=== PATIENT | female | born 1990 | race Caucasian/White ===

== ENCOUNTER 2018-02-23 17:52 | Inpatient (IN) | payer MEDICAID, SELFPAY ==
[2018-02-23 18:12] VITALS: BMI 31.2
[2018-02-23] MEDS: Lactated Ringers 1,000 ML 50 ML IV ×3 (18:25→22:13)
[2018-02-23 18:56] LABS: Hematocrit 33.9 % (37-47); Hemoglobin 11.4 g/dl (12.0-15.0); Mean Corp Hgb Conc 33.6 g/gl (32-36); Mean Corpuscular Hgb 32.7 pg (27.0-32.0); Mean Corpuscular Volume 97.1 fL (81-99); Mean Platelet Vol. 10.6 fl (6.2-12.0); Platelet Count 238 K/mm3 (150-450); RBC Distribution Width SD 45.6 fl (35.1-43.9); Red Blood Count 3.49 M/mm3 (4.2-5.4); White Blood Count 12.4 K/mm3 (4.4-11.0)
[2018-02-23 19:01] LABS: Scan Indicated on CBC? Y/N NO
[2018-02-23] MEDS: fentaNYL-bupivacaine (epidural) 100 ML BAG EPIDURAL (19:45)
[2018-02-23] MEDS: Ondansetron 4 MG/2 ML Vial IV (20:20)
--- NOTE | 2018-02-23 21:53 | PCM.HP.OB ---
History Date of Admission: 02/23/18 Final MARVIN: 03/03/18 Gestational age: 38 Weeks and 6 Days History of this : GBS negative PNC in [place] with Pertinent Past Medical History: Hepatitis C Legally blind PTSD Anxiety & depression - no meds in Allergies ketorolac [From Toradol] Adverse Reaction (Verified 09/30/16 02:10) Other Penicillins Adverse Reaction (Verified 09/30/16 01:06) Hives Current Medications Acetaminophen (Tylenol) 325 - 650 mg PO Q4H PRN PRN PRN Reason: PAIN OR FEVER >100.4F Al Hydroxide/Mg Hydroxide (Mylanta Ii) 15 - 30 ml PO Q4H PRN PRN PRN Reason: INDIGESTION Citric Acid/Sodium Citrate (Bicitra) 30 ml PO UD PRN Lactated Ringer's () 1,000 mls @ 50 mls/hr IV .Q20H EDGAR Last Admin: 02/23/18 20:21 Dose: 50 mls/hr Naloxone HCl 4 mg/ Dextrose 504 mls @ 0 mls/hr IV PRN PRN; Protocol PRN Reason: TO MAINTAIN RR>10 Nalbuphine HCl (Nubain) 5 - 10 mg IV Q3H PRN PRN PRN Reason: PAIN (4-10/10) Nalbuphine HCl (Nubain) 5 mg IV Q3H PRN PRN Reason: ITCHING Stop: 02/24/18 20:51 Naloxone HCl (Narcan) 0.2 mg IV Q1M PRN PRN Reason: RR<10 AND PT UNRESPONSIVE Stop: 02/24/18 20:51 Ondansetron HCl (Zofran) 4 mg IV Q8H PRN PRN PRN Reason: NAUSEA Last Admin: 02/23/18 20:20 Dose: 4 mg Promethazine HCl (Phenergan Iv) 6.25 - 12.5 mg IV Q4H PRN PRN; Protocol PRN Reason: IF NAUSEA PERSISTS Sodium Chloride () 5 - 15 ml IV UD EDGAR Last Admin: 02/23/18 19:54 Dose: Not Given Smoking Status: Current every day smoker Alcohol: None Drug Use: none Number of Fetus(es): 1 Physical Exam General: Alert, Oriented x3 Abdomen: Soft, Non Tender, Non-Distended, Gravid Estimated gestational size: Appropriate for gestational size Cervix Dilation (cm): 8 - AROM meconium fluid Station: 0 Effacement (%): 90 Assessment/Plan 27yo female @ 38&6 in labor Admit to L&D Pain - comfortable with epidural GBS negative EFW less than 4500g, patient with adequate pelvis Peds at delivery for meconium fluid Routine care
[2018-02-23 21:59] LABS: AST(SGOT) 21 U/L (15-37); Alanine Aminotransfer ALT/SGPT 21 U/L (13-56); Albumin, Serum 2.3 g/dL (3.2-5.0); Alkaline Phosphatase 104 U/L (45-117); Bilirubin, Direct 0.14 mg/dL (0.00-0.30); Globulin 3.9 g/dL (2.2-4.2); Protein, Total 6.2 g/dL (6.4-8.2)
[2018-02-24] MEDS: fentaNYL-bupivacaine (epidural) 100 ML BAG EPIDURAL ×2 (00:25→05:25)
[2018-02-24] MEDS: Lactated Ringers 1,000 ML 50 ML IV ×2 (02:06→07:18)
[2018-02-24] MEDS: Acetaminophen 325 MG Tablet PO (03:10)
[2018-02-24] MEDS: Ondansetron 4 MG/2 ML Vial IV (05:52)
--- NOTE | 2018-02-24 08:12 | PCM.OB.VAG ---
Vaginal Delivery Maternal Presentation: Active Labor Amniotic Membrane Rupture Type: Artificial Amniotic Fluid Description: Moderate meconium Final MARVIN: 03/03/18 Gestational age: 39 Weeks and 0 Days Date of Procedure: 02/24/18 Pre-Operative Diagnosis: labor Post-Operative Diagnosis: labor Surgery/ Procedure Performed: Spontaneous Vaginal Delivery Type of Anesthesia: Epidural Description of Procedure: patient c/c/+3 and pushing. she was prepped & draped in stirrups. she pushed & delivered head. gentle traction placed on head to allow delivery of anterior & posterior shoulders. no excess traction placed on head. body delivered & infant placed on maternal abdomen. 3vc clamped & cut immediately as infant not vigorous & had meconium fluid. taken to warmer by RN. placenta delivered with gentle traction. good uterine obtained. Presentation: RIGO Placental Delivery Description: Expressed Placenta Disposition: [facility] Cord Vessel Description: 3 Vessels Cord Entanglement: None Drain: Charles to straight drain Estimated Blood Loss: 400ml Infant A gender: Male (1 minute): 7 (5 minute): 9 Episiotomy Description: None Laceration: 2nd degree - repaired with 3-0 vicryl Medications given after delivery: IV Pitocin Complications: None
[2018-02-24] MEDS: Oxytocin 30 units/NS 500 ml 30 UNITS/500 ML IV.SOLN 334 UNITS IV (08:38)
[2018-02-24] MEDS: Oxytocin 30 units/NS 500 ml 30 UNITS/500 ML IV.SOLN 167 UNITS IV (09:15)
[2018-02-24 10:00] VITALS: BP 102/55; PULSE 80; RESP 18; TEMP 36.8
[2018-02-24] MEDS: Acetaminophen 500 MG Tablet 1000 MG PO (12:12)
[2018-02-24 14:30] VITALS: BP 123/58; PULSE 79; RESP 17; TEMP 36.6; O2SAT 98
[2018-02-24] MEDS: Ibuprofen 600 MG Tablet PO (16:48)
[2018-02-24 20:00] VITALS: BP 123/62; PULSE 74; RESP 15; TEMP 37.6
[2018-02-24] MEDS: oxyCODONE 5 MG Tablet PO (20:28)
[2018-02-25] VITALS: BP 100/55; PULSE 72; RESP 16; TEMP 37.3
[2018-02-25] MEDS: oxyCODONE 5 MG Tablet PO (00:25)
[2018-02-25] MEDS: Hydrocortisone 2.5% Crm 1 APPLIC TOPICAL (03:17)
[2018-02-25 04:00] VITALS: BP 101/61; PULSE 71; RESP 15; TEMP 36.9
[2018-02-25] MEDS: Ibuprofen 600 MG Tablet PO ×3 (04:15→20:11)
[2018-02-25] MEDS: Acetaminophen 500 MG Tablet 1000 MG PO (07:37)
[2018-02-25] MEDS: Senna/Docusate Sodium 1 Tablet PO (07:45)
[2018-02-25 08:00] VITALS: BP 106/58; PULSE 72; RESP 16; TEMP 37.2; O2SAT 96
--- NOTE | 2018-02-25 10:02 | PCM.PN.OB ---
Subjective: pt seen at bedside, doing well. pt reports good pain control. lochia mild. Breast feeding well. - Physical Exam General: Alert, Oriented x3 Abdomen: Soft, Non-Distended, - - fundus firm Extremities: No Calf Tenderness Vital Signs Temp Pulse Resp BP Pulse Ox 98.4 F 71 15 101/61 98 02/25/18 04:00 02/25/18 04:00 02/25/18 04:00 02/25/18 04:00 02/24/18 14:30 Oxygen Delivery Method Room Air Weight: 72.6 kg Body Mass Index (BMI) 31.2 Intake and Output for Last 24 Hours 02/23/18 02/24/18 02/25/18 23:59 23:59 23:59 Intake Total 2400 / 2400 3703 / 3703 Output Total 400 / 400 1200 / 1200 Balance 1999 2503 / 2503 Medical Necessity - Tobacco Use Smoking Status: Current every day smoker Assessment/Plan PPD#1, doing well routine care dc home today per patient request
--- NOTE | 2018-02-25 10:05 | DCINST_ITS ---
Discharge Diet: No Restrictions Discharge Activity: Return to Normal Activity, May not drive while taking narcotic pain medications., May Shower May resume sexual activity in: 4-6 weeks Additional Activity Instructions:: Nothing in the vagina for 4-6 weeks. You may return to work/school in 6 weeks. Call your doctor if your incision/area has: Continuous Slow Oozing, Sudden Increased Bleeding, Increased Pain/ Swelling, Increased Redness, Foul Smelling Discharge Additional Instructions: If you experience any of the following, contact your healthcare provider. * Bleeding that soaks a pad every hour for 2 hours * Fever 100.4 or higher * Unrelieved incision or abdominal pain * Swelling, redness, discharge or bleeding from your incision or episiotomy site * Your incision begins to separate * Problems urinating (including inability to urinate or burning while urinating) . * Visual changes * Severe headache * Flu-like symptoms * Pain or redness in one of both of your breasts * Pain, warmth, tenderness or swelling in your legs, especially the calf area * Frequent nausea and vomiting * Symptoms of depression or anxiety If you experience any of the following, call 911 or go to the nearest Emergency Room. * Chest pain * Problems breathing * Seizure activity * Partial or complete paralysis of a body part, slurred speech, weakness or drooping of the face, or a sudden inability to walk or hold your balance Allergies/Adverse Reactions: Allergies ketorolac [From Toradol] Adverse Reaction (Verified 09/30/16 02:10) Other Penicillins Adverse Reaction (Verified 09/30/16 01:06) Hives Medications to take at Discharge Vit No.130/Iron/FA [ Tablet] 1 each PO DAILY 02/23/18 Ibuprofen [Motrin] 800 mg PO Q8H PRN PRN #30 tab 02/25/18 The following prescriptions were given: Ibuprofen [Motrin] 800 mg PO Q8H PRN PRN #30 tab PRN Reason: Pain When: Call to make an appointment with your doctor in 6 weeks. If you had elevated Blood Pressure or 4th degree laceration you will need to be seen in 2 weeks.
[2018-02-25 14:10] VITALS: BP 99/61; PULSE 68; RESP 16; TEMP 36.9
[2018-02-25 20:00] VITALS: BP 102/58; PULSE 83; RESP 15; TEMP 36.6
[2018-02-25 20:08] LABS: HCV Quant. RNA PCR 1490000 IU/mL (.)
--- NOTE | 2018-02-25 23:46 | NURSING ---
Patient requesting pacifier for infant. Educated patient on importance of no pacifiers until at least 30 days to establish . Patient stated she understood but wanted one anyway because she cannot keep feeding her . Questioned what was going on and patient stated she is hurting too bad. Discussed using ointment and/or gel pads. Patient not receptive stating I've tried all of that and I am still in too much pain. Suggested patient call this nurse before next feeding to assist with proper latch of infant. Patient agreed.
[2018-02-26 02:00] VITALS: BP 110/62; PULSE 89; RESP 16
[2018-02-26] MEDS: Ibuprofen 600 MG Tablet PO (08:17)
--- NOTE | 2018-02-26 08:41 | PCM.PN.BLA ---
Progress Note S: Patient standing at bedside soothing baby. Patient reports she is without any complications at this time. Denies that nipples have any cracks or blisters. Patient known Hep C +, using nipple patricia to help prevent possibility of future cracking or blistering. Patient otherwise denies any other issues or concerns. O: VSS, Afebrile Nipples without cracks, blisters. Soft, filling. No erythema noted. Abdomen soft, NT x 4 quadrants, FF midline @ 2FB below umbilicus +2/4 reflexes in LE, no edema noted Negative calf tenderness to palpation scant rubra lochia, perineum well-approximated A: 27 y/o s/p , PPD #2, Normal Course P: 1) Discharge to home - anticipatory home going teaching done 2) Scheduled for f/u visit on Thursday with [facility] 3) RTC for 6 week PP visit with [facility] providers Faiza Ruiz CNM
--- NOTE | 2018-02-26 08:48 | PN_ITS ---
Progress Note S: Patient standing at bedside soothing baby. Patient reports she is without any complications at this time. Denies that nipples have any cracks or blisters. Patient known Hep C +, using nipple patricia to help prevent possibility of future cracking or blistering. Patient otherwise denies any other issues or concerns. O: VSS, Afebrile Nipples without cracks, blisters. Soft, filling. No erythema noted. Abdomen soft, NT x 4 quadrants, FF midline @ 2FB below umbilicus +2/4 reflexes in LE, no edema noted Negative calf tenderness to palpation scant rubra lochia, perineum well-approximated A: 27 y/o s/p , PPD #2, Normal Course P: 1) Discharge to home - anticipatory home going teaching done 2) Scheduled for f/u visit on Thursday with [facility] 3) RTC for 6 week PP visit with [facility] providers Faiza Ruiz CNM
[2018-02-26 09:05] VITALS: BP 111/66; PULSE 88; RESP 18; TEMP 36.6
[2018-02-26 09:25] LABS: HCV log 10 6.173 (.)
[2018-02-26 13:10] VITALS: BP 111/66; PULSE 88; RESP 18; TEMP 36.6
== END 2018-02-26 13:10 | disposition home or self-care (01) | DRG 373 ==
LOC: WPOUT 17:53 → WP 17:54 → WPOUT 18:34
PROVIDERS: Admitting Provider Obstetrics & Gynecology; Visit Provider Obstetrics & Gynecology
DX: O70.1 Second degree perineal laceration during delivery (principal); O77.0 Labor and delivery complicated by meconium in amniotic fluid; B19.20 Unspecified viral hepatitis C without hepatic coma; O99.334 Smoking (tobacco) complicating childbirth; F17.200 Nicotine dependence, unspecified, uncomplicated; F43.10 Post-traumatic stress disorder, unspecified; H54.8 Legal blindness, as defined in USA; Z3A.38 38 weeks gestation of pregnancy; Z37.0 Single live birth
CPT/HCPCS: 59025; 59050; 80076; 85027; 86850; 86900; 87522; 99218; J7120; G0378; J2405

== ENCOUNTER 2019-11-15 13:45 | Inpatient (IN) | payer MEDICAID, SELFPAY ==
[2019-11-15 12:04] VITALS: BMI 27.1
[2019-11-15 12:37] LABS: ROM Internal Control Test YES-OK TO RESULT pt. (Internal QC); ROM Patient Test Negative (Negative)
[2019-11-15] MEDS: Acetaminophen 500 MG Tablet PO (13:14)
[2019-11-15] MEDS: Lactated Ringers 1,000 ML 50 ML IV (14:10)
[2019-11-15] MEDS: Lactated Ringers 500 ML 999 ML IV ×2 (14:27→21:55)
[2019-11-15 14:35] LABS: Absolute Lymphocyte Count 2.35 X10^3/uL (0.83-4.51); Absolute Neutrophil Count 6.4 X10^3/uL (2.0-7.7); Basophil# 0.02 X10^3/uL; Basophil% 0.2 % (0-1); Eosinophil# 0.04 X10^3/uL; Eosinophils% 0.4 % (0-5); Hemoglobin 10.4 g/dL (12.0-15.0); Lymphocyte # 2.35 X10^3/ul (4.0); Lymphocyte % 24.6 % (19-41); Mean Corp Hgb Conc 33.5 g/dL (32-36); Mean Corpuscular Hgb 30.5 pg (27.0-32.0); Mean Corpuscular Volume 90.9 fL (81-99); Mean Platelet Vol. 10.1 fl (6.2-12.0); Monocyte# 0.69 X10^3/uL; Monocyte% 7.2 % (0-10); NRBC Flagged by Analyzer 0 % (0-5); Neutrophil % 67.2 % (47-70); Platelet Count 261 K/mm3 (150-450); RBC Distribution Width CV 12.8 % (11.6-14.6); Red Blood Count 3.41 M/mm3 (4.2-5.4); White Blood Count 9.5 K/mm3 (4.4-11.0)
[2019-11-15 14:41] LABS: International Normalized Ratio 1.1; Prothrombin Time (Protime)PT. 13.6 SECONDS (11.7-14.9)
[2019-11-15 14:42] LABS: Partial Thromboplast Time 27.7 Seconds (24.1-36.2)
[2019-11-15 14:51] LABS: AST(SGOT) 21 U/L (15-37); Alanine Aminotransfer ALT/SGPT 17 U/L (13-56); Creatinine, Serum 0.59 mg/dL (0.55-1.02); EST Glomerular Filtration Rate 131 mL/min (>60); Est Glom Filt Rate - Afr Amer 158 mL/min (>60); Estimated Creatinine Clearance 102.88 ml/min; Protein, Urine (Random) 11.7 mg/dL (<11.9); Protein:Creat Ratio 170 mg/g CRE (0-200); Uric Acid 3.6 mg/dL (2.6-6.0)
[2019-11-15 15:11] LABS: Amphetamine Urine VISTA NEGATIVE (<1000 ng/mL); Barbiturate Urine VISTA NEGATIVE (< 200 ng/mL); Benzodiazepine Urine VISTA NEGATIVE (< 200 ng/mL); Cocaine Urine VISTA NEGATIVE (< 300 ng/mL); Ecstacy Urine VISTA NEGATIVE (< 500 ng/mL); Methadone Urine VISTA NEGATIVE (< 300 ng/mL); PCP Urine VISTA NEGATIVE (< 25 ng/mL); THC Urine VISTA POSITIVE (< 50 ng/mL); Vista UDS pH Range 6
[2019-11-15] MEDS: fentaNYL-bupivacaine (epidural) 100 ML BAG EPIDURAL ×2 (15:41→20:42)
[2019-11-15] MEDS: Ondansetron 4 MG/2 ML Vial IV ×2 (16:07→23:36)
--- NOTE | 2019-11-15 16:43 | HP.PCM_ITS ---
History Date of Admission: 11/15/19 Final MARVIN: 11/13/19 Gestational age: 40 Weeks and 2 Days History of this : This is a 29 year-old, G [], P [], at 40 weeks gestational age. Surgical History: Surgical History (Last Updated 11/15/19 @ 16:48 by Candice Olivia) H/O eye surgery Z98.890 Hx of tonsillectomy Z90.89 Allergies ketorolac [From Toradol] Adverse Reaction (Verified 09/30/16 02:10) Other Penicillins Adverse Reaction (Verified 09/30/16 01:06) Hives Home Medications: Home Medications Vit No.130/Iron/Folic [ Tablet] 1 each PO DAILY 02/23/18 Ibuprofen [Motrin] 800 mg PO Q8H PRN PRN #30 tab 02/25/18 Smoking Status: Light Smoker (<10/day) Substance Use Type: Marijuana Number of Fetus(es): 1 NST - FHR Rate Baby A Baseline: 115 Variability:: Moderate Accelerations:: 15 x 15 NST Reactive:: Yes Uterine Activity:: not tracing well, Q2 minutes palpated History Past Pregnancies: Past Pregnancies Delivery Date Name GA/ Weeks Outcome Route Wt Infant Sex Labor Length Anesthesia Delivery Location Provider FOB Labs: See [facility] H[facility]P Physical Exam General: Alert, Oriented x3 Abdomen: Soft, Non Tender, Non-Distended - ff mid & below umb [employer]: Normal external genitalia Estimated gestational size: Appropriate for gestational size Presentation: Cephalic Cervix Dilation (cm): 5 - AROM clear fluid Station: -2 Effacement (%): 70 Assessment/Plan This is a 29 year-old, G4, P1021, at 40&2 weeks gestational age. Admit to L&D Expectant management GBS negative Hep C EFW less than 4500g, patient with adequate pelvis Pain - epidural Routine care
[2019-11-15] MEDS: proCHLORPERazine 10 MG/2 ML Vial IV (19:25)
[2019-11-15] MEDS: Oxytocin 30 units/NS 500 ml 30 UNITS/500 ML IV.SOLN IV (21:48)
[2019-11-15] MEDS: Oxytocin 30 units/NS 500 ml 30 UNITS/500 ML IV.SOLN 334 UNITS IV (22:46)
[2019-11-16] VITALS (7 sets, daily range): BP systolic 89–107; BP diastolic 39–67; PULSE 49–102; RESP 16–18; TEMP 36.4–37; O2SAT 98–99
--- NOTE | 2019-11-16 00:23 | PCM.OPRPT ---
Vaginal Delivery Maternal Presentation: Active Labor Amniotic Membrane Rupture Type: Artificial Amniotic Fluid Description: Lightly stained meconium Final MARVIN: 11/13/19 Gestational age: 40 Weeks and 3 Days Date of Procedure: 11/15/19 Pre-Operative Diagnosis: Labor Post-Operative Diagnosis: Labor Surgery/ Procedure Performed: Spontaneous Vaginal Delivery Type of Anesthesia: Epidural Description of Procedure: Patient prepped & draped in stirrups when C/C/+3. She pushed to deliver head. Head gently guided to allow delivery of anterior and posterior shoulders. No excess traction placed on head. Body delivered & infant placed on maternal abdomen. 3VC clamped & cut in delayed fashion. Placenta delivered with gentle traction. Good uterine tone obtained Presentation: Vertex Placental Delivery Description: Spontaneous Placenta Disposition: [facility] Cord Vessel Description: 3 Vessels Cord Entanglement: Around neck x 1, loose Estimated Blood Loss: 300ml A gender: Male - Hubert (1 minute): 8 (5 minute): 9 Laceration: 1st degree - vaginal repaired with 3-0 vicryl Medications given after delivery: IV Pitocin Complications: None
[2019-11-16] MEDS: Naproxen 250 MG Tablet 500 MG PO ×2 (01:11→16:06)
[2019-11-16] MEDS: 0.9% Saline Lock 10 ML Syringe IV (01:24)
[2019-11-16] MEDS: Acetaminophen 500 MG Tablet 1000 MG PO (04:29)
--- NOTE | 2019-11-16 12:49 | DCINST_ITS ---
Discharge Diet: No Restrictions Discharge Activity: May Drive, May Shower May resume sexual activity in: 6 weeks Weight Bearing Status: Weight bearing as tolerated Additional Instructions: If you experience any of the following, contact your healthcare provider. * Bleeding that soaks a pad every hour for 2 hours * Fever 100.4 or higher * Unrelieved incision or abdominal pain * Swelling, redness, discharge or bleeding from your incision or episiotomy site * Your incision begins to separate * Problems urinating (including inability to urinate or burning while urinating). * Visual changes * Severe headache * Flu-like symptoms * Pain or redness in one of both of your breasts * Pain, warmth, tenderness or swelling in your legs, especially the calf area * Frequent nausea and vomiting * Symptoms of depression or anxiety If you experience any of the following, call 911 or go to the nearest Emergency Room. * Chest pain * Problems breathing * Seizure activity * Partial or complete paralysis of a body part, slurred speech, weakness or drooping of the face, or a sudden inability to walk or hold your balance Allergies/Adverse Reactions: Allergies ketorolac [From Toradol] Adverse Reaction (Verified 09/30/16 02:10) Other Penicillins Adverse Reaction (Verified 09/30/16 01:06) Hives Medications to take at Discharge Ibuprofen [Motrin] 800 mg PO Q8H PRN PRN #30 tab 02/25/18 Vits [Prenatabs FA ] 1 tab PO DAILY@1200 tab 11/16/19 Primary Care Physician: Care Physician,No Primary [Primary Care Provider] - Test Results: Test results from this visit will be discussed in further detail at your follow- up appointment, if applicable.
--- NOTE | 2019-11-16 12:49 | PCM.DCVAG ---
Discharge Diet: No Restrictions Discharge Activity: May Drive, May Shower May resume sexual activity in: 6 weeks Weight Bearing Status: Weight bearing as tolerated Additional Instructions: If you experience any of the following, contact your healthcare provider. Bleeding that soaks a pad every hour for 2 hours Fever 100.4 or higher Unrelieved incision or abdominal pain Swelling, redness, discharge or bleeding from your incision or episiotomy site Your incision begins to separate Problems urinating (including inability to urinate or burning while urinating). Visual changes Severe headache Flu-like symptoms Pain or redness in one of both of your breasts Pain, warmth, tenderness or swelling in your legs, especially the calf area Frequent nausea and vomiting Symptoms of depression or anxiety If you experience any of the following, call 911 or go to the nearest Emergency Room. Chest pain Problems breathing Seizure activity Partial or complete paralysis of a body part, slurred speech, weakness or drooping of the face, or a sudden inability to walk or hold your balance Allergies/Adverse Reactions: Allergies ketorolac [From Toradol] Adverse Reaction (Verified 09/30/16 02:10) Other Penicillins Adverse Reaction (Verified 09/30/16 01:06) Hives Medications to take at Discharge Ibuprofen [Motrin] 800 mg PO Q8H PRN PRN #30 tab 02/25/18 Vits [Prenatabs FA ] 1 tab PO DAILY@1200 tab 11/16/19 Primary Care Physician: Care Physician,No Primary [Primary Care Provider] - Test Results: Test results from this visit will be discussed in further detail at your follow-up appointment, if applicable.
--- NOTE | 2019-11-16 12:49 | PCM.PN.OB ---
Subjective: No complaints - Physical Exam Vitals/I&O's: Vital Signs Temp Pulse Resp BP 98.1 F 54 L 16 102/39 L 11/16/19 09:20 11/16/19 09:20 11/16/19 09:20 11/16/19 09:20 Oxygen Delivery Method Room Air Weight: 139 lb Body Mass Index (BMI) 27.1 Intake and Output for Last 24 Hours 11/14/19 11/15/19 11/16/19 23:59 23:59 23:59 Intake Total 1771.83 / 2071.83 633 / 633 Output Total 1600 / 1600 Balance 1771.83 / 1271.83 -967 / -967 General: Alert, Oriented x3 Abdomen: Soft, Non Tender, Non-Distended - ff mid & below umb Extremities: No Calf Tenderness Neurological: Cranial nerves II-XII grossly intact Laboratory Results 11/15/19 14:00: WBC 9.5, RBC 3.41 L, Hgb 10.4 L, Hct 31.0 L, MCV 90.9, MCH 30.5, MCHC 33.5, RDW Std Deviation 42.0, RDW Coeff of Jeny 12.8, Plt Count 261, MPV 10.1, Immature Gran % (Auto) 0.400, Neut % (Auto) 67.2, Lymph % (Auto) 24.6, Schleicher % (Auto) 7.2, Eos % (Auto) 0.4, Baso % (Auto) 0.2, Absolute Neuts (auto) 6.4, Absolute Lymphs (auto) 2.35, Nucleated RBC % 0 11/15/19 14:00: Blood Type O POSITIVE, Antibody Screen NEGATIVE 11/15/19 14:00: PT 13.6, INR 1.1, APTT 27.7 11/15/19 14:00: Creatinine 0.59, Estim Creat Clear Calc 102.88, Est GFR (MDRD) Af Amer 158, Est GFR (MDRD) Non-Af 131, Uric Acid 3.6, AST 21, ALT 17 11/15/19 14:00: Urine Opiates Screen NEGATIVE, Urine Methadone Screen NEGATIVE, Ur Barbiturates Screen NEGATIVE, Ur Phencyclidine Scrn NEGATIVE, Ur Amphetamines Screen NEGATIVE, U Methamphetamin-MDMA NEGATIVE, U Benzodiazepines Scrn NEGATIVE, Urine Cocaine Screen NEGATIVE, U Cannabinoids Screen POSITIVE H, Ur Drug Screen Comment 11/15/19 14:00: U Random Total Protein 11.7, Urine Creatinine 69.00, Protein/Creatinin Ratio 170 Current Medications Acetaminophen (Tylenol) 1,000 mg PO Q8H PRN PRN PRN Reason: Pain Score 1-3/10 Last Admin: 11/16/19 04:29 Dose: 1,000 mg Documented by: Bisacodyl (Dulcolax) 10 mg RECTAL UD PRN PRN Reason: If no BM Dibucaine (Dibucaine) 1 applic TOPICAL TID PRN PRN; Protocol PRN Reason: Discomfort Hydrocortisone (Hytone) 1 applic TOPICAL TID PRN PRN; Protocol PRN Reason: Discomfort Methylergonovine Maleate (Methergine) 0.2 mg IM X1 PRN PRN Reason: Excess bleeding/uterine atony Naproxen (Naprosyn) 500 mg PO Q8H PRN PRN PRN Reason: Pain Score 1-3/10 Last Admin: 11/16/19 01:11 Dose: 500 mg Documented by: Ondansetron HCl (Zofran) 4 mg IV Q4H PRN PRN PRN Reason: Nausea Oxycodone HCl (Oxyir) 5 - 10 mg PO Q4H PRN PRN PRN Reason: Pain Score 4-10/10 Multivit/Folic Acid/Iron (Prenatabs Fa) 1 tablet PO DAILY@1200 EDGAR Senna/Docusate Sodium (Senokot-S, Kaykay-Colace) 1 - 2 tablet PO DAILY PRN PRN PRN Reason: Constipation Simethicone (Mylicon) 80 mg PO PCHS PRN PRN Reason: Indigestion/Stomach pain Sodium Chloride () 5 - 15 ml IV UD PRN PRN Reason: SALINE FLUSH Last Admin: 11/16/19 01:24 Dose: 10 ml Documented by: Medical Necessity - Tobacco Use Smoking Status: Light Smoker (<10/day) Assessment/Plan PPD#1 Routine care Plan for d/c after 24 hours as requested by patient
[2019-11-16] MEDS: Prenatal Vits Tablet 1 TABLET PO (16:07)
== END 2019-11-16 23:40 | disposition home or self-care (01) | DRG 560 ==
LOC: WPOUT 13:56 → WP 13:56
PROVIDERS: Admitting Provider Obstetrics & Gynecology; Referring Provider Obstetrics & Gynecology; Visit Provider Obstetrics & Gynecology
DX: O77.0 Labor and delivery complicated by meconium in amniotic fluid (principal); O69.81X0 Labor and delivery complicated by cord around neck, without compression, not applicable or unspecified; O98.42 Viral hepatitis complicating childbirth; B19.20 Unspecified viral hepatitis C without hepatic coma; O70.0 First degree perineal laceration during delivery; O99.324 Drug use complicating childbirth; F12.90 Cannabis use, unspecified, uncomplicated; O99.334 Smoking (tobacco) complicating childbirth; F17.200 Nicotine dependence, unspecified, uncomplicated; Z3A.40 40 weeks gestation of pregnancy; Z37.0 Single live birth
CPT/HCPCS: 59025; 59050; 80307; 82565; 82570; 84112; 84156; 84450; 84460; 84550; 85025; 85610; 85730; 86850; 86900; 86901; 99218; J7120; A4216; G0378; J2405